=== PATIENT | female | born 1935 ===

== ENCOUNTER 2018-02-19 21:33 | Inpatient (IN) | payer MEDICARE ==
[~2018-02-19] VITALS: Ht 154.9 cm; Wt 57.7 kg
--- NOTE | 2018-02-19 21:55 | NUR ---
PATIENT UNABLE TO RECALL PRESCRIPTION TAKING AT HOME
--- NOTE | 2018-02-19 22:05 | NUR ---
Xray at bedside
--- NOTE | 2018-02-19 22:07 | NUR ---
Patient comes into the ER via EMS [id number]. Patient is brought in for syncopal episode at home. Patient was ambulating to the restroom at her house, she then remembers waking up on the floor. Patient denies head injury at this time. No visible trauma is noted upon arrival. Respirations even and unlabored. no cardiovascular dystress noted. no /GI distress noted. GCS 15 upon arrival. AAOx4. Speaking in complete, clear sentences. No facial droop is noted. NSR on director of sleep.
[2018-02-19 22:08] LABS: BASOPHILS # (AUTO) 0.1 K/uL (0.0-8.0); BASOPHILS % (AUTO) 0.7 % (0.0-2.0); EOSINOPHILS % (AUTO) 0.1 % (0.0-7.0); HEMATOCRIT 31.5 % (31.2-41.9); HEMOGLOBIN 10.9 g/dL (10.9-14.3); LYMPHOCYTES # (AUTO) 0.8 K/uL (20.0-40.0); LYMPHOCYTES % (AUTO) 8.2 % (20.5-51.5); MEAN CORPUSCULAR HEMOGLOBIN 33.1 uug (24.7-32.8); MEAN CORPUSCULAR HGB CONC 35 g/dL (32.3-35.6); MEAN CORPUSCULAR VOLUME 95.5 fL (75.5-95.3); MONOCYTES # (AUTO) 0.4 K/uL (2.0-10.0); MONOCYTES % (AUTO) 4.7 % (0.0-11.0); NEUTROPHILS # (AUTO) 8.2 K/uL (1.8-8.9); NEUTROPHILS % (AUTO) 86.3 % (38.5-71.5); PLATELET COUNT (AUTO) 259 K/uL (179-408); WHITE BLOOD COUNT (AUTO) 9.5 K/uL (3.8-11.8)
--- NOTE | 2018-02-19 22:10 | NUR ---
Patient taken to CT at this time.
[2018-02-19] MEDS ORDERED: ONDANSETRON IV *ER 4 MG/2 ML VIAL IV ONE (22:15)
[2018-02-19] MEDS ORDERED: ONDANSETRON 4 MG/2 ML VIAL ONE (22:17)
[2018-02-19 22:18] LABS: CARBON DIOXIDE 25 mmol/L (21-32); CHLORIDE 105 mmol/L (98-107); CREATININE 1.2 mg/dL (0.6-1.3); GLUCOSE 195 mg/dL (74-106); POTASSIUM 3.6 mmol/L (3.5-5.1); UREA NITROGEN, BLOOD 22 mg/dL (7-18)
[2018-02-19 22:24] LABS: ALANINE AMINOTRANSFERASE 27 U/L (14-59); ALKALINE PHOSPHATASE 51 U/L (50-136); ASPARTATE AMINOTRANSFERASE 17 U/L (15-37); BILIRUBIN,DIRECT 0.1 mg/dL (0.0-0.2); BILIRUBIN,TOTAL 0.4 mg/dL (0.2-1.0); TOTAL PROTEIN, SERUM 7.4 g/dL (6.4-8.2)
--- NOTE | 2018-02-19 22:44 | NUR ---
Patient remains in bed, no acute distress noted. Call placed to [facility] for panel call.
--- NOTE | 2018-02-19 22:55 | NUR ---
CALLED PATIENT PHARMACY. OPHELIA JACOB. UNABLE TO OBTAIN MED LIST DUE TO STORE CLOSE AT THIS HOUR
[2018-02-19] MEDS ORDERED: ACETAMINOPHEN 325 MG TABLET PO PRN (23:00)
[2018-02-19] MEDS ORDERED: ALBUTEROL SULFATE 2.5 MG/3 ML NEBU NEB PRN (23:00)
[2018-02-19] MEDS ORDERED: MAGNESIUM HYDROXIDE 30 ML LIQUID UDC PO PRN (23:00)
[2018-02-19] MEDS ORDERED: POTASSIUM CHLORIDE 20 MEQ in IV 1/2NS 1000 ML 1,000 ML IV PRN (23:00)
[2018-02-19] MEDS ORDERED: ONDANSETRON 4 MG/2 ML VIAL IV PRN (23:00)
[2018-02-19] MEDS ORDERED: TEMAZEPAM 7.5 MG CAPSULE PO PRN (23:00)
[2018-02-19] MEDS ORDERED: MORPHINE SULFATE 4 MG/1 ML DISP.SYRIN IV PRN (23:00)
[2018-02-19] MEDS ORDERED: ATOR20TA PO (23:01)
[2018-02-19] MEDS ORDERED: LEVO50TA8 PO (23:01)
--- NOTE | 2018-02-19 23:11 | NUR ---
report given to Hayley KAPOOR on Telemetry.
--- NOTE | 2018-02-19 23:12 | NUR ---
Pt. admitted to Telemetry , under care of Dr. Vazquez. Dx: Syncope Belongs List completed
--- NOTE | 2018-02-19 23:25 | NUR ---
Admitted a 82 years old female with diagnosis of Syncope. Pt AAOX4. Denies any pain or SOB during admission. Denies any dizziness or nausea at this time. IV site on left forearm intact and patent. Routine admission care done. Plan of care initiated. Safety measure initiated and call bowens within reach.
[2018-02-20] VITALS (10 sets, daily range): BP systolic 82–119; BP diastolic 52–77
--- NOTE | 2018-02-20 06:19 | NUR ---
PATIENT AAOX4. DENIES ANY PAIN OR SOB. NO FURTHER DIZZINESS. NO N/V SINCE ADMITTED TO FLOOR. SR ON TELE AT 78/MIN. IN NO ACUTE DISTRESS. O2 SAT AT 93% ON RA. IV SITE ON LFA INTACT AND PATENT. IVF INFUSING. REPORTED SLEPT AT NIGHT. SAFETY MEASURE MAINTAINED AND CALL MOCK WITHIN REACH.
[2018-02-20 06:45] LABS: BASOPHILS % (AUTO) 0.5 % (0.0-2.0); EOSINOPHILS % (AUTO) 0.1 % (0.0-7.0); HEMATOCRIT 28.4 % (31.2-41.9); HEMOGLOBIN 9.8 g/dL (10.9-14.3); LYMPHOCYTES # (AUTO) 0.8 K/uL (20.0-40.0); LYMPHOCYTES % (AUTO) 13.2 % (20.5-51.5); MEAN CORPUSCULAR HGB CONC 35 g/dL (32.3-35.6); MEAN CORPUSCULAR VOLUME 95.2 fL (75.5-95.3); MONOCYTES # (AUTO) 0.4 K/uL (2.0-10.0); MONOCYTES % (AUTO) 6.7 % (0.0-11.0); NEUTROPHILS # (AUTO) 4.8 K/uL (1.8-8.9); NEUTROPHILS % (AUTO) 79.5 % (38.5-71.5); PLATELET COUNT (AUTO) 221 K/uL (179-408); RED BLOOD CELL COUNT(AUTO) 2.98 MIL/uL (3.63-4.92)
[2018-02-20] MEDS ORDERED: PANTOPRAZOLE SODIUM 40 MG TABLET.DR PO SCH (07:00)
[2018-02-20 07:05] LABS: THYROID STIMULATING HORMONE 0.985 mIU/mL (0.358-3.740)
[2018-02-20 07:09] LABS: IRON, SERUM 33 ug/dL (50-175)
[2018-02-20 07:21] LABS: ALANINE AMINOTRANSFERASE 21 U/L (14-59); ALKALINE PHOSPHATASE 40 U/L (50-136); ASPARTATE AMINOTRANSFERASE 18 U/L (15-37); BILIRUBIN,TOTAL 0.4 mg/dL (0.2-1.0); CARBON DIOXIDE 28 mmol/L (21-32); CHLORIDE 105 mmol/L (98-107); CHOLESTEROL 211 mg/dL (<200); GLUCOSE 102 mg/dL (74-106); HDL CHOLESTEROL 73 mg/dL (40-60); POTASSIUM 4.3 mmol/L (3.5-5.1); TOTAL PROTEIN, SERUM 6.6 g/dL (6.4-8.2); TRIGLYCERIDES 55 MG/DL (30-150); UREA NITROGEN, BLOOD 20 mg/dL (7-18)
--- NOTE | 2018-02-20 08:00 | NUR ---
AWAKE ALERT AND ORIENTED X3 DENIES PAIN OR SOB, NO C/O DIZZINESS REMAINS SR ON MONITOR
[2018-02-20 09:44] LABS: *BILIRUBIN,URIN NEGATIVE (NEGATIVE); *BLOOD, URINE NEGATIVE (NEGATIVE); *CLARITY,URINE CLEAR (CLEAR); *COLOR,URINE YELLOW (YELLOW); *KETONES,URINE NEGATIVE (NEGATIVE); *PROTEIN,URINE NEGATIVE (NEGATIVE); *UROBILINOGEN,URINE 0.2 E.U./dl (NORMAL); LEUKOCYTE ESTERASE ,URINE TRACE (NEGATIVE); NITRITE, URINE NEGATIVE (NEGATIVE); UGLUCOSE NEGATIVE (NEGATIVE)
[2018-02-20 10:00] LABS: BACTERIA,URINE FEW /HPF (NONE SEEN); RBC,URINE 0-3 /HPF (0-3); SQUAMOUS EPITHELIAL CELL,UR FEW /HPF (NONE SEEN); WBC,URINE 0-3 /HPF (0-3)
--- NOTE | 2018-02-20 13:32 | NUR ---
NO ACUTE CHANGE CONTINUE TELE OBSERVATION
--- NOTE | 2018-02-20 17:46 | NUR ---
AWAITING DC ORDER FOR HOME WITH HOME HEALTH
[2018-02-20] MEDS ORDERED: ONDA4TAB5 PO (18:28)
--- NOTE | 2018-02-20 19:02 | NUR ---
DISCHARGE AND FOLLOW-UP INSTRUCTION GIVEN. DC WITH HOME [facility]ALTH FOR RN AND [facility]IAL [facility] ANJU
--- NOTE | 2018-02-20 19:15 | NUR ---
RECEIVED PT SITTING AT THE SIDE OF THE BED WITH NEPHEW PRESENT. GETTING READY TO BE DISCHARGE. AAOX4. DENIES ANY PAIN OR SOB.
--- NOTE | 2018-02-20 19:23 | NUR ---
PT AAOX4. VS WNL. O2 SAT AT 96% ON RA. IN NO ACUTE DISTRESS. ALL PAPER WORK WA ALREADY GIVEN TO PT BY DAY SHIFT NURSE ELISABETH. QUESTIONS AND CONCERN WAS ALL ANSWERED. PT PICKED UP BY PT NEPHEW AND DISCHARGE BACK TO HOME.
[2018-02-20] MEDS ORDERED: DOCUSATE SODIUM 100 MG CAPSULE PO SCH (21:00)
== END 2018-02-20 19:30 | disposition home health service (06) | DRG 684 ==
LOC: ER 21:38 → TELE 23:07
PROVIDERS: ADMIT Internal Medicine; ATTEND Internal Medicine
DX: N17.0 Acute kidney failure with tubular necrosis (principal); E86.0 Dehydration; J43.9 Emphysema, unspecified; I35.8 Other nonrheumatic aortic valve disorders; E03.9 Hypothyroidism, unspecified; I10 Essential (primary) hypertension; E78.5 Hyperlipidemia, unspecified; D50.9 Iron deficiency anemia, unspecified; Z79.899 Other long term (current) drug therapy
CPT/HCPCS: 36415; 70030-TC; 70450; 71045; 83550; 83605; 83735; 84100; 84443; 85025; 85730; 87040; 87086; 93005; 93307; 93880; A4663; J2405; J3480; J3490